=== PATIENT | male | born 1985 | race Caucasian/White ===

== ENCOUNTER 2017-07-12 07:06 | Outpatient (CLI) | payer OTHER ==
[~2017-07-12] VITALS: Ht 190.5 cm; Wt 106.6 kg
[~2017-07-12 07:06] MED LIST: LIDOCAINE 2% INJ 100 MG/5 ML SDV (FOR ANES.) As Ordered ONE; OMEP40CA2 PO; PROPOFOL 200 MG/20 ML VIAL As Ordered ONE; SIMETHICONE 40MG/0.6ML DROPS 30ML As Ordered ONE
[2017-07-12] MEDS ORDERED: NS 1,000 ML IV ONE (07:15)
[2017-07-12] MEDS ORDERED: PROPOFOL 200 MG/20 ML VIAL As Ordered ONE (07:50)
--- NOTE | 2017-07-12 07:53 | ROOR ---
Patient Name: Cameron Anand Procedure Date: 07/12/2017 7:38 AM Date of : 1985 Age: 31 Room: [facility] Gender: Male Note Status: Finalized Procedure: Upper GI endoscopy + Balloon Dilatation Indications: Dysphagia, Eosinophilic esophagitis, Follow-up of eosinophilic esophagitis, For therapy of eosinophilic esophagitis Providers: Son Chilel MD Referring MD: Son Chilel MD Requesting Provider: Medicines: Monitored Anesthesia Care Complications: No immediate complications. Procedure: Pre-Anesthesia Assessment: - The heart rate, respiratory rate, oxygen saturations, blood pressure, adequacy of pulmonary ventilation, and response to care were monitored throughout the procedure. The Endoscope was introduced through the mouth, and advanced to the second part of duodenum. The upper GI endoscopy was accomplished without difficulty. The patient tolerated the procedure well. Findings: The Z-line was regular and was found 40 cm from the incisors. Mucosal changes including ringed esophagus were found in the entire esophagus. A TTS dilator was passed through the scope. Dilation with an 18-19-20 mm balloon dilator was performed to 20 mm. The dilation site was examined and showed mild improvement in luminal narrowing. A non-obstructing Schatzki ring (acquired) was found at the gastroesophageal junction. A TTS dilator was passed through the scope. Dilation with an 18-19-20 mm balloon dilator was performed to 20 mm. No other significant abnormalities were identified in a careful examination of the stomach. The exam of the duodenum was otherwise normal. Impression: - Z-line regular, 40 cm from the incisors. - Esophageal mucosal changes secondary to eosinophilic esophagitis. Dilated. - Non-obstructing Schatzki ring. Dilated. - No specimens collected. - The examination was otherwise normal. Recommendation: - Patient has a contact number available for emergencies. The signs and symptoms of potential delayed complications were discussed with the patient. Return to normal activities tomorrow. Written discharge instructions were provided to the patient. - Resume previous diet. - Discharge patient to home. - Continue present medications. - Follow an antireflux regimen. - Continue present medications. - Repeat upper endoscopy PRN. - Return to referring physician. - The findings and recommendations were discussed with the patient's family. Son Chilel MD Son Chilel MD 07/12/2017 7:53:38 AM This report has been signed electronically. Number of Addenda: 0 Note Initiated On: 07/12/2017 7:38 AM Estimated Blood Loss: Estimated blood loss: none.
[2017-07-12 08:15] VITALS: BP 142/92
== END 2017-07-12 08:41 | disposition home or self-care (01) ==
LOC: M OPP 07:06
PROVIDERS: ATTEND Internal Medicine Gastroenterology
DX: R13.10 Dysphagia, unspecified (principal); K20.0 Eosinophilic esophagitis; K22.2 Esophageal obstruction; R12 Heartburn; R19.7 Diarrhea, unspecified; Z79.899 Other long term (current) drug therapy

== ENCOUNTER 2025-01-16 10:00 | Day surgery (SDC) | payer OTHER ==
[~2025-01-16] VITALS: Ht 190.5 cm; Wt 113.3 kg
[~2025-01-16 10:00] MED LIST changes: -LIDOCAINE 2% INJ 100 MG/5 ML SDV (FOR ANES.) As Ordered ONE; -OMEP40CA2 PO; +OMEP40CA4 PO; -PROPOFOL 200 MG/20 ML VIAL As Ordered ONE; -SIMETHICONE 40MG/0.6ML DROPS 30ML As Ordered ONE
[2025-01-16] MEDS ORDERED: propofoL 200 MG/20 ML VIAL As Ordered ONE (11:20)
[2025-01-16] MEDS ORDERED: LIDOCAINE 2% 100MG/5ML SDV (FOR ANES.) As Ordered ONE (11:20)
[2025-01-16 12:09] VITALS: TEMP 97.6
[2025-01-16 12:28] VITALS: BP 133/84; O2SAT 97
== END 2025-01-16 12:29 | disposition home or self-care (01) ==
LOC: M OPP 10:00
PROVIDERS: ATTEND Internal Medicine Gastroenterology
DX: K22.2 Esophageal obstruction (principal); R13.10 Dysphagia, unspecified; Z79.899 Other long term (current) drug therapy
CPT/HCPCS: 43249; A4649